=== PATIENT | male | born 1935 | race African-American/Black ===

== ENCOUNTER 2016-06-02 12:26 | Emergency (ER) | payer OTHER ==
[~2016-06-02] VITALS: Ht 180.3 cm; Wt 81.6 kg
[~2016-06-02 12:26] MED LIST: ASPI81TA2 PO; ATEN25TA PO; VALS40TA4 PO
[2016-06-02 12:33] VITALS: BP 123/82
[2016-06-02] MEDS ORDERED: OXYMETAZOLINE HCL NASAL SPRAY 30 ML BOTTLE NS ONE ×2 (12:47→13:00)
--- NOTE | 2016-06-02 13:37 | NUR ---
PT REQUESTS TO WAIT "A FEW HOURS" FOR THE NOSEBLEED TO STOP AND HAVE RHINO ROCKET REMOVED PRIOR TO DISCHARGE RATHER THAN GO HOME WITH RHINO ROCKET IN PLACE. NAD NOTED. ALL NEEDS ATTENDED TO.
--- NOTE | 2016-06-02 15:17 | NUR ---
PT BROUGHT BACK INTO ROOM 3 FOR REEVAL BY MD PRIOR TO DISCHARGE.
== END 2016-06-02 16:04 | disposition home or self-care (01) ==
LOC: ER 12:27
DX: R04.0 Epistaxis (principal); I10 Essential (primary) hypertension; F17.200 Nicotine dependence, unspecified, uncomplicated; Z90.89 Acquired absence of other organs; Z79.82 Long term (current) use of aspirin
CPT/HCPCS: 30901; 99284; A4606; A6402; Z7610